=== PATIENT | female | born 1975 ===

== ENCOUNTER 2016-07-15 07:48 | Day surgery (SDC) | payer OTHER ==
[2016-07-10 13:42] VITALS: BMI 34.3
[~2016-07-15 07:48] MED LIST: ceFAZolin IV 1 gm in Dextrose 50 ML IVPB ONE
[2016-07-15] MEDS ORDERED: Acetaminophen/Codeine elixir 120-12mg/5ml PO PRN (08:09)
[2016-07-15] MEDS ORDERED: Dextrose 5%/0.45% NS 1,000 ML IV SCH (08:15)
[2016-07-15] MEDS ORDERED: Propofol 10 mg/ml Inj (20 ML) ONE (09:19)
[2016-07-15] MEDS ORDERED: Midazolam 2 MG/2 ML VIAL ONE (09:21)
[2016-07-15] MEDS ORDERED: Neostigmine Methylsulfate 3mg/3ml Syringe IV ONE (09:27)
[2016-07-15] MEDS ORDERED: Lactated Ringer's 1,000 ML IV ONE (09:40)
[2016-07-15] MEDS ORDERED: ceFAZolin IV 1 gm in Dextrose 50 ML IVPB ONE (09:47)
[2016-07-15] MEDS: HYDROmorphone 0.5 mg/0.5 ml ISec IVP PRN ×4 (10:45→12:07)
--- NOTE | 2016-07-15 12:38 | OP ---
PROCEDURE DATE: 07/15/2016 PREOPERATIVE DIAGNOSIS: Chronic tonsillitis. POSTOPERATIVE DIAGNOSIS: Chronic tonsillitis. PROCEDURE: Tonsillectomy. SIGNIFICANT FINDINGS: Chronically infected tonsils. DESCRIPTION OF PROCEDURE: The patient was brought in room, placed in supine position. Anesthesia wa s initiated through an ET tube. The patient was draped in the usual manner. Mouth gag was placed in the oral cavity, opened, suspended on the [employer] worker usual manner. Right tonsil was grasped, pul led medially. Incision was made in the anterior tonsillar pillar using Coblation. Dissection was do ne between tonsil and tonsillar fossa using Coblation until the tonsil was removed. Bleeding was con trolled using Coblation. Next, the other tonsil was grasped, pulled medially. Incision was made in the anterior tonsillar pillar using Coblation. Dissection was done between tonsil and tonsillar ferny a using Coblation until the tonsil was removed. Bleeding was controlled using Coblation. Both tonsi llar beds were rubbed vigorously with Coblation wand. No bleeding was noted. Mouth gag was let down for 30 seconds, put back up. No bleeding was noted. Mouth gag was taken down and removed. The pat ient was taken off anesthesia and taken to recovery room in stable manner. Pradeep Mobley MD cc: [id number] TT: 07/15/2016 12:37:30 [place]
[2016-07-15 13:47] VITALS: RESP 18
[2016-07-15 14:05] VITALS: PULSE 90
[2016-07-15 16:02] VITALS: BP 100/52; TEMP 98.7; O2SAT 100
== END 2016-07-15 16:32 | disposition home or self-care (01) ==
LOC: C.SDS 07:48
PROVIDERS: ATTEND Otolaryngology
DX: J35.01 Chronic tonsillitis (principal)
CPT/HCPCS: 42826; 88304; J0690; J1170; J2250; J2704; J2710; J3010; J7042; J7120

== ENCOUNTER 2016-12-23 07:34 | Day surgery (SDC) | payer OTHER ==
[2016-07-10 13:42] VITALS: BMI 34.3
[2016-12-23] MEDS ORDERED: Lidocaine Hydrochloride 5 ML INJ ONE (10:03)
[2016-12-23] MEDS ORDERED: Propofol 10 mg/ml Inj (20 ML) ONE (10:03)
--- NOTE | 2016-12-23 10:06 | CP.SDSHP ---
Same Day Surgery H & P - History Proposed Procedure: EGD Pre-Op Diagnosis: SEE NOTES - Previous Medical/Surgical History Neuro: Backaches Misc: Other Pain: 4.Moderate Pain - Allergies Allergies: Allergies morphine Allergy (Intermediate, Verified 12/23/16 08:04) NAUSEA PAIN IN STOMACH - Physical Exam General Appearance: N Vital Signs: Vital Signs 12/23/16 12/23/16 07:45 10:03 Temperature 97.8 F 97.8 F Pulse Rate 64 64 Respiratory 16 16 Rate Blood Pressure 109/59 L 109/59 L O2 Sat by Pulse 99 99 Oximetry Mental Status: Alert & Oriented x3 Neuro: WNL Lungs: WNL GI: Other - {Optional Preform as Required} Breast: WNL Abdomen: Other Rectal: Other Integument: WNL : WNL Ortho: Other ENT: WNL - Impression Pt. Evaluated Today:Candidate for Anesthesia & Procedure: Yes - Date & Time Time: 10:06 Short Stay Discharge - Short Stay Discharge Admitting Diagnosis/Reason for Visit: DYSPEPSIA Disposition: HOME/ ROUTINE
[2016-12-23] MEDS ORDERED: Belladonna-Phenobarbital PO ONE (10:30)
[2016-12-23 10:33] VITALS: TEMP 98; O2SAT 100
[2016-12-23 10:45] VITALS: RESP 20
[2016-12-23 11:15] VITALS: BP 100/60
[2016-12-23 11:19] VITALS: PULSE 59
== END 2016-12-23 11:20 | disposition home or self-care (01) ==
LOC: C.ENDO 07:34
PROVIDERS: ATTEND Specialist
DX: K30 Functional dyspepsia (principal); K44.9 Diaphragmatic hernia without obstruction or gangrene; K29.70 Gastritis, unspecified, without bleeding
CPT/HCPCS: 43239; 84703; 88305; J2704